=== PATIENT | male | born 1995 | race Caucasian/White ===

== ENCOUNTER 2025-02-13 02:42 | Emergency (ER) | payer SELFPAY ==
[2025-02-13] MEDS ORDERED: FLUoxetine 20 MG Cap PO ONE (03:41)
[2025-02-13] MEDS: ClonazePAM 0.5 MG Tab PO ONE (03:58)
[2025-02-13] MEDS: FLUoxetine 20 MG Cap PO ONE (03:58)
== END 2025-02-13 04:08 | disposition home or self-care (01) ==
LOC: MW.ED 02:42
DX: F41.9 Anxiety disorder, unspecified (principal); Z76.0 Encounter for issue of repeat prescription; Z79.899 Other long term (current) drug therapy
CPT/HCPCS: 99283; A9270

== ENCOUNTER 2025-02-13 22:45 | Emergency (ER) | payer SELFPAY ==
[2025-02-13] MEDS: FLUoxetine 20 MG Cap PO ONE (23:52)
[2025-02-13] MEDS: ClonazePAM 1 MG Tab PO ONE (23:52)
[2025-02-14] MEDS ORDERED: ClonazePAM 1 MG Tab PO ONE (23:14)
== END 2025-02-13 23:57 | disposition home or self-care (01) ==
LOC: MW.ED 22:45
DX: F41.0 Panic disorder [episodic paroxysmal anxiety] (principal); Z79.899 Other long term (current) drug therapy; Z76.0 Encounter for issue of repeat prescription
CPT/HCPCS: 99283; A9270

== ENCOUNTER 2025-02-14 12:04 | Emergency (ER) | payer SELFPAY ==
[2025-02-14] MEDS: ClonazePAM 1 MG Tab PO STA (12:36)
[2025-02-14] MEDS: FLUoxetine 20 MG Cap PO STA (12:37)
== END 2025-02-14 13:12 | disposition home or self-care (01) ==
LOC: MW.ED 12:04
DX: Z76.0 Encounter for issue of repeat prescription (principal); F41.1 Generalized anxiety disorder; F60.3 Borderline personality disorder; Z79.899 Other long term (current) drug therapy
CPT/HCPCS: 99281; A9270; 99283